=== PATIENT | female | born 1960 | race Two or more races ===

== ENCOUNTER 2022-09-23 04:40 | Emergency (ER) | payer OTHER ==
[~2022-09-23] VITALS: Ht 157.5 cm; Wt 60.8 kg
[2022-09-23] MEDS ORDERED: ANASTROZOLE1 MG PO (04:58)
== END 2022-09-23 11:17 | disposition home or self-care (01) ==
LOC: ER 04:40
DX: K21.9 Gastro-esophageal reflux disease without esophagitis (principal)